=== PATIENT | female | born 1985 | race African-American/Black ===

== ENCOUNTER 2016-08-06 08:55 | Emergency (ER) ==
--- NOTE | 2016-08-06 11:24 | PROVIDER DOCUMENTATION ---
HPI-Abdominal Pain/GI Problem - General Chief Complaint: Rectal Bleeding Stated Complaint: BLOOD IN STOOL/SORE THROAT/EYE PAIN Time Seen by Provider: 08/06/16 10:55 Source: patient Allergies/Adverse Reactions: Patient Allergies Allergy/AdvReac Type Severity Reaction Status Date / Time No Known Allergies Allergy Verified 08/06/16 10:49 Home Medications: Home Medication List Medication Instructions Recorded Confirmed Last Taken Type Bisacodyl [Dulcolax] [address] QHS #20 supp 08/06/16 Unknown Rx Cephalexin [Keflex] 500 mg PO BID #14 capsule 08/06/16 Unknown Rx Na Phos,M-B/Na Phos,Di-Ba [Fleet [address] HS PRN PRN #3 enema 08/06/16 Unknown Rx Enema] Polyethylene Glycol 3350 [Miralax] 255 gm PO DAILY #1 powder 08/06/16 Unknown Rx - History of Present Illness-ABD Nature of Presenting Problems: 31 year old AAF presents with two complaints. 1. pt reports a sore throat, right ear pain for 7 days, getting worse, left side of throat worse than right. pt reports pain is sharp and exacerbated with swallowing, eating, drinking. 2. pt report last night she had a BM, normal, wiped and found bright red blood on the toilet paper. pt reports associated dull abdominal pain, onset this morning. denies pain with BM, straining, history of hemorrhoids. pt denies nausea, vomiting, fever, chills. pt reports [place] from [place] town and is here in a long-term recovering from substance abuse. pt reports a history of anemia that has required a transfusion in the past. pt reports she does not know why she is anemic. Abdominal Pain Onset Location: reports: generalized abdomen Pain Radiation: reports: no radiation Quality of Pain: reports: aching, dull Severity in ED: reports: mild Onset/Duration: reports: this morning Timing: reports: still present, constant Activities at Onset: reports: none Exposure to sick contacts?: No Modifying Factors: improves with: nothing Associated Symptoms: denies: syncope, vomiting, weakness Last BM: last night Dark Stools Present?: reports: none noticed. denies: maroon, black, tarry, bright red blood Rectal Bleeding: reports: bright red blood on paper. denies: bleeding without stool, blood mixed with stool, blood streaks on stool, bloody diarrhea # of Diarrhea Episodes: 0 Rectal Pain: reports: none. denies: known anal fissure(s), known hemorrhoids, fistula, abscess # of Vomiting Episodes: 0 Emesis Description: reports: none Review of Systems - Adult - REVIEW OF SYSTEMS - ADULT Constitutional: reports: no symptoms reported. denies: chills, fever, fatique Eyes: reports: no symptoms reported. denies: discharge, blurred vision, double vision, redness Ears, Nose, Mouth & Throat: reports: no symptoms reported. denies: ear discharge, ear pain, nose pain, loose teeth, throat pain, throat swelling Cardiovascular: reports: no symptoms reported. denies: chest pain, palpitations , syncope Respiratory: reports: no symptoms reported. denies: chronic cough, cough, shortness of breath, wheezing Gastrointestinal: reports: see HPI, abdominal pain, rectal bleeding. denies: hematemesis, constipation, diarrhea, difficulty swallowing, frequent heartburn, nausea, poor appetite, vomiting Genitourinary: reports: no symptoms reported. denies: dysuria, hematuria, urgency Musculoskeletal: reports: no symptoms reported. denies: bone pain, joint pain, joint swelling, neck pain Integumentary: reports: no symptoms reported. denies: hives, itching, skin thickening Neurological: reports: no symptoms reported. denies: ataxia, dizziness/vertigo , syncope Psychiatric: reports: no symptoms reported Endocrine: reports: no symptoms reported Hematologic/Lymphatic: reports: no symptoms reported. denies: blood clots, easy bruising, low blood count, prolonged bleeding, transfusions Allergic/Immunologic: reports: no symptoms reported All Other Systems: Reviewed and Negative Past History - Adult - PAST MEDICAL HISTORY-ADULT Review of Records: reports: Old Records Reviewed, Nursing Assessment Review, Medications Reviewed, Social history reviewed & non-contributory. Major Childhood Illnesses: reports: denies history Cardiovascular: reports: denies history Respiratory: reports: denies history Gastrointestinal: reports: denies history Obstetrical/Gynecological: reports: denies history Genitourinary: reports: denies history Musculoskeletal: reports: denies history Neurological: reports: denies history Endocrine/Immune: reports: denies history Other Conditions: reports: denies history - FAMILY HISTORY Family History: reviewed, not pertinent - SOCIAL HISTORY Smoking: quit greater than 1 year Substance Use: none presently/history of abuse Physical Exam-General - PHYSICAL EXAM-ADULT Initial Vital Signs Reviewed: Yes - CONSTITUTIONAL General Appearance: appears well, alert, no apparent distress, anxious. negative: mild distress, moderate distress, severe distress - EYES Eyes: pink conjunctivae. negative: conjuctival exudate, pale conjunctivae, sclera injected, scleral icterus, subconjunctival hemorrhage - HEAD, EARS, NOSE, MOUTH & THROAT HENMT: normocephalic/atraumatic, moist mucous membranes, normal ENT inspection, TMs normal, pharyngeal erythema, TM abnormal (left with white scarring). negative: pharynx normal, tonsillar exudate, TM obscurred by cerumen, frontal tenderness, maxillary tenderness - NECK Neck: non-tender, full range of motion, supple, normal inspection. negative: C- spine tenderness, limited range of motion, tender lateral, tender midline - RESPIRATORY Respiratory: chest non-tender, lungs clear, normal breath sounds, no pleuratic chest pain, no respiratory distress, no accessory muscle use - CARDIOVASCULAR Cardiovascular: normal peripheral pulses, regular rate, rhythm. negative: tachycardia - CHEST (BREASTS) Chest/Breast: deferred - GASTROINTESTINAL (ABDOMEN) Abdominal Exam: normal bowel sounds, soft, no organomegaly, no pulsatile mass, tenderness (diffuse, nonfocal). negative: non tender, abnormal bowel sounds, distended, guarding, rigid, rebound, hernia, mass, hepatomegaly, spleenomegaly, McBurney's point tenderness, Torres's sign, obturator sign, prominent aortic pulsations, psoas, Rovsing's sign - GENITOURINARY Female Genitalia/Pelvic Exam: deferred Rectal Exam: deferred Hemoccult Exam: deferred - LYMPHATIC Lymphatic: no adenopathy - MUSCULOSKELETAL Back Exam: normal inspection, no CVA tenderness, no vertebral tenderness. negative: CVA tenderness, decreased range of motion, swelling, vertebral tenderness Extremity: normal range of motion, non-tender, normal gait, normal inspection, no pedal edema, no calf tenderness, normal capillary refill. negative: deformity, erythema, inflammation Peripheral Pulses: radial (R): 3+, radial (L): 3+, dorsalis-pedis (R): 3+, dorsalis-pedis (L): 3+ - SKIN Integumentary: normal color, normal turgor, warm/dry. negative: pallor, petechiae, purpura - NEUROLOGIC Neurologic: grossly normal, no motor/sensory deficits - PSYCHIATRIC Psych/Mental Status: normal mood/affect, normal thought content, normal thought process, oriented x 3 Progress - PLAN OF CARE/RESULTS Progress/Plan/Lab Results: Laboratory Tests 08/06/16 08/06/16 08/06/16 11:37 12:00 12:00 WBC 5.01 RBC 4.63 Hgb 8.3 L Hct 28.2 L MCV 60.9 L MCH 17.9 L MCHC 29.4 L RDW Std Deviation 19.4 H Plt Count 460 H MPV 9.1 Immature Gran % (Auto) 0.0 Neut % (Auto) 33.9 L Lymph % (Auto) 52.1 H Bledsoe % (Auto) 11.4 H Eos % (Auto) 2.0 Baso % (Auto) 0.6 Immature Gran # (Auto) 0.00 Neut # (Auto) 1.70 Lymph # (Auto) 2.61 Bledsoe # (Auto) 0.57 Eos # (Auto) 0.10 Baso # (Auto) 0.03 Sodium 137 Potassium 4.1 Chloride 101 Carbon Dioxide 23 L Anion Gap 13 BUN 13 Creatinine 0.7 Estimated GFR/1.73 m2 > 60 BUN/Creatinine Ratio 19 Glucose 83 Calculated Osmolality 273 Calcium 9.1 Total Bilirubin 0.39 AST 22 ALT 10 Alkaline Phosphatase 58 Total Protein 8.4 H Albumin 4.4 Globulin 4.0 Albumin/Globulin Ratio 1.1 Amylase 163 Lipase 56 Urine Source CLEAN CATCH Urine Color YELLOW Urine Turbidity HAZY Urine pH 6.5 Ur Specific Fitzhugh 1.019 Urine Protein NEGATIVE Ur Glucose (Stick) NEGATIVE Ur Ketones (Stick) NEGATIVE Urine Blood NEGATIVE Urine Nitrite POSITIVE A Urine Bilirubin NEGATIVE Urobilinogen Dipstick NORMAL Urine Leukocytes TRACE A Urine WBC (Auto) <10 Urine RBC (Auto) <10 U Epithel Cells (Auto) <10 Urine Bacteria (Auto) 4+ Reviewed radiology, labs H&P with Dr. Velásquez, agrees with plan of care and treatment. - XRAY 1 XRAY Study: Chest, Abdomen Impression: Abnormal (constipation) Departure - Departure Time of Disposition Order: 12:51 DIAGNOSIS: UTI (urinary tract infection) Qualifiers: Urinary tract infection type: acute cystitis Hematuria presence: without hematuria Qualified Code(s): N30.00 - Acute cystitis without hematuria Pharyngitis Qualifiers: Pharyngitis/tonsillitis etiology: unspecified etiology Qualified Code(s): J02.9 - Acute pharyngitis, unspecified Constipation Qualifiers: Constipation type: unspecified constipation type Qualified Code(s): K59.00 - Constipation, unspecified Anemia Qualifiers: Anemia type: iron deficiency Iron deficiency anemia type: other iron deficiency Qualified Code(s): D50.8 - Other iron deficiency anemias Disposition: HOME 01 Certified Medical Emergency: Emergent Condition: Stable Additional Instructions: Follow up with Dr. Choi, the pattern developer, call for an appointment. ED Follow Up Instructions: You have been treated by a care provider in the Emergency Department. These instructions are being provided to you so you can have an understanding of how to care for yourself upon discharge. Upon discharge from the Emergency Department, you are responsible for making arrangements for follow-up care by a physician of your choice. Take all prescribed medications as directed. Return to the Emergency Department immediately for any new or worsening symptoms. You may call the Physician Referral phone number at [phone] to obtain a list of Physicians who are taking new patients. Prescriptions: Bisacodyl [Dulcolax] [address] QHS #20 supp Na Phos,M-B/Na Phos,Di-Ba [Fleet Enema] [address] HS PRN PRN #3 enema PRN Reason: Constipation Cephalexin [Keflex] 500 mg PO BID #14 capsule Polyethylene Glycol 3350 [Miralax] 255 gm PO DAILY #1 powder Referrals: Lynda Choi MD [STAFF PHYSICIAN] - None,PCP [Primary Care Provider] - [facility] [NON-STAFF] - Forms: Return to School/Parent Work Instructions: Constipation, Adult, [id number], Urinary Tract Infection, Easy- to-Read, Pharyngitis, [id number] Attestation - Physician/ PAT Attestation Patient care was provided by Advanced Practice Provider:: Yes Advanced Practice Provider:: Ross Santos Advanced Practice Provider documentation review:: The Mid-level provider documentation, treatment plan and medical decision making was reviewed by the physician who agrees with all treatment and medical decision making by the MLP.
[2016-08-06 11:50] LABS: URINE MICRO REVIEW NEEDED? NO; URINE SOURCE CLEAN CATCH
[2016-08-06 11:55] LABS: BILIRUBIN URINE NEGATIVE (NEGATIVE); BLOOD URINE NEGATIVE (NEGATIVE); COLOR YELLOW; GLUCOSE URINE NEGATIVE (NEGATIVE); LEUKOCYTES URINE TRACE (NEGATIVE); NITRITE URINE POSITIVE (NEGATIVE); PH URINE 6.5; PROTEIN URINE NEGATIVE (NEGATIVE); SP GRAVITY URINE 1.019; TURBIDITY URINE HAZY (CLEAR); UROBILINOGEN URINE NORMAL (NORMAL)
[2016-08-06 11:57] LABS: UR EPITHELIAL CELLS <10 /HPF (<10); URINE BACTERIA 4+ /HPF; URINE CULTURE NEEDED? YES; URINE RBC <10 /HPF (<10); URINE WBC <10 /HPF (<10)
[2016-08-06 12:18] LABS: BASO% 0.6 % (0.0-0.8); HEMATOCRIT 28.2 % (37.0-47.0); HEMOGLOBIN 8.3 g/dL (12.0-16.0); LYMPH# 2.61 X1000 (1.2-3.4); LYMPH% 52.1 % (20.5-51.1); MANUAL DIFF NEEDED? NO; MCH 17.9 PG (27-31); MCHC 29.4 g/dL (33-37); MCV 60.9 FL (81-99); MONO# 0.57 X1000 (0.11-0.59); MONO% 11.4 % (1.7-9.3); MPV 9.1 FL (7.4-10.4); NEUT% 33.9 % (42.2-75.2); PLT 460 X1000 (130-400); RBC 4.63 XMIL (4.2-5.4)
[2016-08-06 12:25] LABS: AGAP 13; ALBUMIN 4.4 g/dL (3.5-5.0); ALKALINE PHOSPHATASE 58 U/L (32-104); AMYLASE 163 U/L (20-200); BUN 13 mg/dL (8-22); CALCIUM 9.1 mg/dL (8.8-10.2); CHLORIDE 101 mmol/L (98-107); COSMO 273; GOT 22 U/L (10-30); GPT 10 U/L (10-36); LIPASE 56 U/L (13-60); POTASSIUM 4.1 mmol/L (3.5-5.1); SODIUM 137 mmol/L (136-145); TCO2 23 mmol/L (25-35); TOTAL BILIRUBIN 0.39 mg/dL (0.20-1.00); TOTAL PROTEIN 8.4 g/dL (6.3-8.3)
[2016-08-06] MEDS ORDERED: ROCEPHIN IM ONE (12:59)
[2016-08-06] MEDS ORDERED: XYLOCAINE-MPF 1% INJ ONE (12:59)
[2016-08-06 13:50] VITALS: BP 124/79
--- NOTE | 2016-08-07 08:31 | Diag Imaging Result Document ---
PROCEDURE NAME: FLAT/UPRIGHT ABD/1 VIEW CHEST - 08/06/2016 FRONTAL CHEST X-RAY AND 2 VIEWS OF THE ABDOMEN, 08/06/2016: COMPARISON: None. FINDINGS: The chest is clear. There is a nonobstructive bowel gas pattern. No free air or abnormal calcifications. IMPRESSION: No acute disease.
== END 2016-08-06 14:20 | disposition home or self-care (01) ==
LOC: ED 08:55
DX: N30.00 Acute cystitis without hematuria (principal); D50.8 Other iron deficiency anemias; K59.00 Constipation, unspecified; J02.9 Acute pharyngitis, unspecified; K62.5 Hemorrhage of anus and rectum; K92.1 Melena; H92.01 Otalgia, right ear; R10.84 Generalized abdominal pain; R10.819 Abdominal tenderness, unspecified site
CPT/HCPCS: 74022; 80053; 81001; 82150; 82270; 83690; 85025; 87081; 87088; 87430; J0696